=== PATIENT | male | born 1980 | race African-American/Black ===

== ENCOUNTER 2024-05-27 19:37 | Emergency (ER) | payer OTHER ==
--- NOTE | 2024-05-27 20:10 | EDPHYS ---
Physician Documentation [facility] [place] Name: Alex Le Age: 44 yrs Sex: Male : 1980 Arrival Date: 05/27/2024 Time: 19:37 Bed 13 Private MD: ED Physician Helio Merrill HPI: 05/27 19:54 This 44 yrs old Male presents to ER via Unassigned with complaints of Abnormal Lab sb4 Results. 19:54 This 44 yrs old Male presents to ER via Law Enforcement with complaints of Abnormal Lab sb4 Results. 19:54 patient [facility] unit had positive urine culture on 05/23 for staphylococcus sb4 aureus with susceptibility to Macrobid, oxacillin, rifampin, Bactrim, and vancomycin. He has been on Bactrim. He was sent to the ED for blood cultures because they could not be done through the intermediate. He has no complaints at this. Historical: - Allergies: 20:32 CHRISTOPHER INHIBITORS; me1 - PMHx: 20:32 Hypertensive disorder; me1 - Immunization history:: Adult Immunizations up to date. - Infectious Disease History:: Denies. - Social history:: Smoking status: Patient/guardian denies using tobacco, but has a distant history of tobacco abuse. ROS: 19:58 Constitutional: Negative for fever, chills, and weight loss, sb4 19:58 All other systems are negative, Exam: 19:58 Constitutional: This is a well developed, well nourished patient who is awake, alert, sb4 and in no acute distress. Head/Face: Normocephalic, atraumatic. Eyes: Extra-ocular motions intact. Periorbital areas with no swelling, redness, or edema. ENT: Mucous membranes moist. 19:58 Respiratory: the patient does not display signs of respiratory distress, Respirations: normal, 19:58 Musculoskeletal/extremity: Exam is negative for 19:58 Neuro: Gait: is steady, appropriate for age, Vital Signs: 19:45 BP 148 / 76; Pulse 84; Resp 16; Temp 98.4; Pulse Ox 100% ; Weight 92.99 kg; Height 5 me1 ft. 7 in. ; Pain 0/10; 19:45 Body Mass Index 32.11 (92.99 kg, 170.18 cm) me1 19:45 Pain Scale: Adult me1 MDM: 19:38 Medical Screening Exam initiated sb4 19:58 Data reviewed: vital signs, nurses notes, and as a result, I will discharge patient. sb4 05/27 19:38 Order name: Blood Culture Adult (2) sb4 05/27 19:38 Order name: UAM; Complete Time: 20:24 sb4 05/27 19:38 Order name: Urine Culture sb4 Administered Medications: No medications were administered Disposition Summary: 05/27/24 20:09 Discharge Ordered Notes: We will notify you if blood culture results are positive. Location: Home sb4 Problem: new sb4 Symptoms: are unchanged sb4 Condition: Stable sb4 Diagnosis - Encounter for blood cultures sb4 Followup: sb4 - With: Private Physician - When: As needed - Reason: Recheck today's complaints, Re-evaluation by your physician Discharge Instructions: - Discharge Summary Sheet sb4 - Blood Culture Test sb4 Forms: - Patient Portal Instructions sb4 - Leadership Thank You Letter sb4 Signatures: Dispatcher [employer] EDCarina Schreiber PA-C PA-C sb4 Veena Akins RN RN me1 Corrections: (The following items were deleted from the chart) 19:56 19:54 patient had positive urine culture on 05/23 for staphylococcus aureus with sb4 susceptibility to Macrobid, oxacillin, rifampin, Bactrim, and vancomycin. He has been on Bactrim. He was sent to the ED for blood cultures. He has no complaints at this. sb4
[2024-05-27 20:19] LABS: Specific Gravity 1.022 (1.005-1.030); Urine Bacteria <20 /HPF (<20); Urine Bilirubin NEGATIVE (Negative); Urine Blood Trace (Negative); Urine Clarity Extremely Turbid (Clear); Urine Color Light-Yellow (Yellow); Urine Culture Reflex Order REFLEXED; Urine Glucose NEGATIVE (Negative); Urine Ketones NEGATIVE (Negative); Urine Micro Reflex YN NO BILL MICROSCOPIC; Urine Mucus Slight /HPF (None Seen); Urine Nitrite NEGATIVE (Negative); Urine Protein NEGATIVE (Negative); Urine Urobilinogen Normal (Normal); Urine WBC >50 /HPF (<5); Urine pH 6.5 (5.0-7.0)
--- NOTE | 2024-05-27 20:35 | ER ---
Nurse's Notes [facility] [place] Name: Alex Le Age: 44 yrs Sex: Male : 1980 Arrival Date: 05/27/2024 Time: 19:37 Bed 13 Private MD: Diagnosis: Encounter for blood cultures Presentation: 05/27 19:45 Chief complaint: Patient states: Sent by the [facility] with [facility] for blood cultures for me1 a UTI. Coronavirus screen: Vaccine status: Patient reports receiving the 2nd dose of the covid vaccine. Ebola Screen: No symptoms or risks identified at this time. Initial Sepsis Screen: Does the patient meet any 2 criteria? No. Patient's initial sepsis screen is negative. Does the patient have a suspected source of infection? No. Patient's initial sepsis screen is negative. Risk Assessment: Do you want to hurt yourself or someone else? Patient reports no desire to harm self or others. Onset of symptoms is unknown. 19:45 Method Of Arrival: Law Enforcement: [place] [facility] 19:45 Acuity: LITA 4 me1 Triage Assessment: 19:45 General: Appears comfortable, well groomed, well developed, well nourished, Behavior is me1 calm, cooperative, appropriate for age. General: Reports he has a UTI, sent for blood cultures. Pain: Denies pain. EENT: No signs and/or symptoms were reported regarding the EENT system. Neuro: Level of Consciousness is awake, alert, obeys commands, Oriented to person, place, time, situation, Appropriate for age. Cardiovascular: Patient's skin is warm and dry. Respiratory: Airway is patent Respiratory effort is even, unlabored, Respiratory pattern is regular, symmetrical. GI: No signs and/or symptoms were reported involving the gastrointestinal system. : Reports burning with urination. : Reports urinary frequency. Derm: Skin is intact, is healthy with good turgor, Skin is pink, warm \T\ dry. Musculoskeletal: No signs and/or symptoms reported regarding the musculoskeletal system. Historical: - Allergies: 20:32 CHRISTOPHER INHIBITORS; me1 - PMHx: 20:32 Hypertensive disorder; me1 - Immunization history:: Adult Immunizations up to date. - Infectious Disease History:: Denies. - Social history:: Smoking status: Patient/guardian denies using tobacco, but has a distant history of tobacco abuse. Screenin:45 [facility] ED Fall Risk Assessment (Adult) History of falling in the last 3 months, me1 including since admission No falls in past 3 months (0 pts) Confusion or Disorientation No (0 pts) Intoxicated or Sedated No (0 pts) Impaired Gait No (0 pts) Mobility Assist Device Used No (0 pt) Altered Elimination No (0 pt) Score/Fall Risk Level 0 - 2 = Low Risk Maintained a safe environment, Provided non-skid footwear, Hourly rounding (assess needs \T\ fall precautionary measures) done. Abuse screen: Denies threats or abuse. Nutritional screening: No deficits noted. Tuberculosis screening: No symptoms or risk factors identified. Assessment: 19:45 General: See triage assessment. . me1 Vital Signs: 19:45 BP 148 / 76; Pulse 84; Resp 16; Temp 98.4; Pulse Ox 100% ; Weight 92.99 kg; Height 5 me1 ft. 7 in. ; Pain 0/10; 19:45 Body Mass Index 32.11 (92.99 kg, 170.18 cm) me1 19:45 Pain Scale: Adult me1 ED Course: 19:38 Patient arrived in ED. sb4 19:38 Carina Resendez PA-C is PHCP. sb4 19:38 Helio Merrill MD is Attending Physician. sb4 19:45 No provider procedures requiring assistance completed. Patient did not have IV access me1 during this emergency room visit. 19:45 Arm band placed on Patient placed in an exam room. me1 19:45 Patient has correct armband on for positive identification. Bed in low position. Call me1 light in reach. Side rails up X2. Provided Education on: POC. Verbalized understanding. . 20:08 Urine Culture Sent. dd2 20:08 UAM Sent. dd2 20:08 Blood Culture Adult (2) Sent. dd2 20:29 Veena Akins, MARIZOL is Primary Nurse. me1 20:32 Triage completed. me1 Administered Medications: No medications were administered Medication: 19:45 VIS not applicable for this client. me1 Outcome: 20:09 Discharge ordered by . sb4 20:35 Patient left the ED. vc1 20:39 Discharged to Law Enforcement me1 20:39 Condition: stable 20:39 Discharge instructions given to patient, guards Instructed on discharge instructions, follow up and referral plans. Demonstrated understanding of instructions, follow-up care, Signatures: Selena Hassan RN RN vc1 Carina Resendez PA-C PA-C sb4 Veena Akins RN RN me1 DESIREE LORA RN RN dd2
[2024-05-28 01:10] VITALS: BP 148/76; TEMP 98.4; O2SAT 100
== END 2024-05-27 20:35 | disposition home or self-care (01) ==
LOC: ER 19:37
DX: R79.89 Other specified abnormal findings of blood chemistry (principal)
CPT/HCPCS: 81001; 87040; 87086; 87088